=== PATIENT | male | born 1990 | race Caucasian/White ===

== ENCOUNTER 2017-12-13 21:33 | Emergency (ER) | payer BC, MEDICAID ==
[2017-12-14] MEDS: AZITHROMYCIN 250 MG TAB PO (01:00)
[2017-12-14] MEDS: CEFTRIAXONE 250 MG INJ IM (01:01)
[2017-12-14 01:48] LABS: URINE BLOOD (Dip) POC Trace-intact (NEGATIVE); URINE GLUCOSE (Dip) POC Negative (NEGATIVE); URINE KETONES (Dip) POC Negative (NEGATIVE); URINE LEUKOCYTE EST (Dip) POC Negative (NEGATIVE); URINE NITRITE (Dip) POC Negative (NEGATIVE); URINE TOTAL PROTEIN POC Negative (NEGATIVE)
[2017-12-14 01:48] LABS: URINE PH (Dip) POC 5.5 (5.0-8.5)
[2017-12-14] MEDS: ONDANSETRON (ODT) 4 MG TAB ODT (02:39)
== END 2017-12-14 02:46 | disposition home or self-care (01) ==
LOC: FTE 21:33
DX: N48.89 Other specified disorders of penis (principal)
CPT/HCPCS: 76870; 81003; 87591; 96372; 99285-25